=== PATIENT | female | born 1965 ===

== ENCOUNTER 2018-02-26 22:52 | Emergency (ER) | payer BC, OTHER ==
[2018-02-26] MEDS ORDERED: Sodium Chloride 0.9% 1,000 ML IV ONE (23:26)
--- NOTE | 2018-02-26 23:26 | C.PDOC ---
History Of Present Illness Patient presents to the ER with a complaint of left greater than right flank pain and back pain that began at approximately 16:00 today. Patient was seen by her certified pharmacist assistant who started her on antibiotics, however, patient is still with sharp flank pain. Patient reports some nausea but denies fever, chills, or vomiting. Time Seen by Provider: 02/26/18 23:26 Chief Complaint (Nursing): Abdominal Pain History Per: Patient History/Exam Limitations: no limitations Onset/Duration Of Symptoms: Hrs Current Symptoms Are (Timing): Still Present Severity: Moderate Pain Scale Rating Of: 6 Radiation Of Pain To:: None Quality Of Discomfort: Sharp Associated Symptoms: Nausea, Back Pain, Other (Flank pain). denies: Fever, Chills, Vomiting Exacerbating Factors: None Alleviating Factors: None Recent travel outside of the [place]: No Abnormal Vaginal Bleeding: No Past Medical History Reviewed: Historical Data, Nursing Documentation, Vital Signs Vital Signs: Last Vital Signs Temp 98.8 F 02/27/18 00:20 Pulse 82 02/27/18 00:20 Resp 18 02/27/18 00:20 BP 140/75 02/27/18 00:20 Pulse Ox 100 02/27/18 00:21 - Medical History PMH: Asthma Family History: States: No Known Family Hx - Social History Hx Alcohol Use: No Hx Substance Use: No Review Of Systems Constitutional: Negative for: Fever, Chills Respiratory: Negative for: Cough Gastrointestinal: Positive for: Nausea. Negative for: Vomiting Genitourinary: Negative for: Dysuria, Hematuria Musculoskeletal: Positive for: Back Pain, Other (Flank pain) Physical Exam - Physical Exam Appears: Non-toxic Skin: Warm, Dry Head: Normacephalic Oral Mucosa: Moist Chest: Symmetrical, No Tenderness Cardiovascular: Rhythm Regular Respiratory: No Rales, No Rhonchi, No Wheezing Gastrointestinal/Abdominal: Soft, Tenderness (Suprapubic), No Guarding, No Rebound Back: Other (Left flank tenderness) Neurological/Psych: Oriented x3 ED Course And Treatment - Laboratory Results Result Diagrams: 02/26/18 23:55 02/26/18 23:55 O2 Sat by Pulse Oximetry: 100 (Room air) Pulse Ox Interpretation: Normal Progress Note: CT abd/pel, blood work, and urinalysis ordered. Morphine, zosyn, toradol, zofran, and IV fluids administered. Reevaluation Time: 01:42 Reassessment Condition: Improved Disposition Counseled Patient/Family Regarding: Studies Performed, Diagnosis, Need For Followup, Rx Given - Disposition Referrals: James Mendoza MD [Staff Provider] - Disposition: HOME/ ROUTINE Disposition Time: 23:26 Condition: FAIR Additional Instructions: Please return if you have fever, chills, nausea or just not feeling any better. Do finish the antibiotic Prescriptions: Ondansetron ODT [Zofran ODT] 1 odt PO BID PRN #6 odt PRN Reason: Nausea/Vomiting traMADol [Ultram] 50 mg PO DAILY PRN #15 tab PRN Reason: Pain, Severe (8-10) Instructions: Acute Cystitis (DC), Urinary Tract Infection, Adult (DC) Forms: [facility] ([place]) - Clinical Impression Clinical Impression: UTI (urinary tract infection) - Scribe Statement The provider has reviewed the documentation as recorded by the Scribe Bora Aburto All medical record entries made by the Scribe were at my direction and personally dictated by me. I have reviewed the chart and agree that the record accurately reflects my personal performance of the history, physical exam, medical decision making, and the department course for this patient. I have also personally directed, reviewed, and agree with the discharge instructions and disposition.
[2018-02-26] MEDS ORDERED: Sodium Chloride 0.9% 1,000 ML ONE (23:32)
[2018-02-26 23:57] LABS: INR 1.1; PROTHROMBIN TIME 11.7 SECONDS (9.7-12.2)
[2018-02-26 23:58] LABS: SQUAMOUS EPITHIAL 24 /hpf (0-5); URINE BILIRUBIN NEGATIVE (NEGATIVE); URINE BLOOD 3+ (NEGATIVE); URINE CLARITY Hazy (Clear); URINE COLOR Yellow (YELLOW); URINE GLUCOSE (UA) NORMAL (Normal); URINE LEUKOCYTE ESTERASE 3+ Leu/uL (Negative); URINE PROTEIN 2+ mg/dL (NEGATIVE); URINE UROBILINOGEN NORMAL mg/dL (0.2-1.0); WBC CLUMPS FEW /hpf
[2018-02-26 23:59] LABS: BASO # 0.1 K/uL (0.0-0.2); BASO % 0.6 % (0.0-2.0); EOS # 0.1 K/uL (0.0-0.7); EOS % 0.5 % (0.0-4.0); HEMOGLOBIN 12.8 g/dL (11.0-16.0); LYMPH # 1.9 K/uL (1.0-4.3); LYMPH % 15.2 % (20.0-40.0); MEAN CELL VOLUME 80.3 fL (81.0-99.0); MEAN CORPUSCULAR HEMOGLOBIN 27.2 pg (27.0-31.0); MEAN CORPUSCULAR HGB CONC 33.9 g/dL (33.0-37.0); MEAN PLATELET VOLUME 9.2 fL (7.2-11.7); MONO # 0.9 K/uL (0.0-0.8); NEUT # 9.5 K/uL (1.8-7.0); NEUT % 76.7 % (50.0-75.0); RBC 4.71 Mil/uL (3.80-5.20); RED CELL DISTRIBUTION WIDTH 13.6 % (11.5-14.5); WHITE BLOOD COUNT 12.3 K/uL (4.8-10.8)
[2018-02-27] MEDS ORDERED: Piperacillin/Tazobact 3.375 gm 100 ML IVPB STA (00:02)
[2018-02-27 00:07] LABS: ALB/GLOB RATIO 1.2 (1.0-2.1); ALBUMIN 4.2 g/dL (3.5-5.0); ALT/SGPT 15 U/L (9-52); AST/SGOT 24 U/L (14-36); BLOOD UREA NITROGEN 8 mg/dL (7-17); CALCIUM 8.8 mg/dl (8.6-10.4); GFR AFRICAN-AMERICAN > 60; GFR NON-AFRICAN AMERICAN > 60
[2018-02-27] MEDS ORDERED: Morphine 4 MG/ML VIAL ONE (00:07)
[2018-02-27] MEDS ORDERED: Piperacillin/Tazobact 3.375 gm 100 ML IVPB ONE (00:14)
--- NOTE | 2018-02-27 01:18 | CT ---
EXAM: CT Abdomen and Pelvis Without Intravenous Contrast CLINICAL HISTORY: 53 years old, female; Pain; Abdominal pain; Additional info: Left flank pain, uti TECHNIQUE: Axial computed tomography images of the abdomen and pelvis without intravenous contrast. All CT scans at this facility use one or more dose reduction techniques, viz.: automated exposure control; ma/kV adjustment per patient size (including targeted exams where dose is matched to indication; i.e. head); or iterative reconstruction technique. Coronal and sagittal reformatted images were created and reviewed. COMPARISON: No relevant prior studies available. FINDINGS: Limitations: Lack of intravenous contrast. Lung bases: Minimal atelectasis. ABDOMEN: Liver: Unremarkable. Gallbladder and bile ducts: No calcified stones. No ductal dilation. Pancreas: Unremarkable. No ductal dilation. Spleen: No splenomegaly. Adrenals: No mass. Kidneys and ureters: No renal calculi. Duplicated left renal collecting system. Mild pelvocaliectasis of kidneys. Mildly dilated ureters. Mild stranding about LEFT ureter. Stomach and bowel: No definite mural thickening. No obstruction. PELVIS: Appendix: Normal caliber. No inflammation. Bladder: Mildly distended bladder. No stones. Reproductive: 2.0 x 1.6 x 1.8 cm hypodense lesion within LEFT ovary. ABDOMEN and PELVIS: Intraperitoneal space: No significant fluid collection. No free air. Bones/joints: Chronic L5 pars defects with anterolisthesis. Early degenerative changes of spine. No acute fracture. Soft tissues: Tiny umbilical hernia containing fat. Vasculature: Unremarkable. No aneurysm. Lymph nodes: No pathologically enlarged lymph nodes. IMPRESSION: 1. Minimal stranding about left ureter concerning for infection. Correlate with urinalysis to exclude infection. 2. Probable LEFT ovarian cyst. Consider ultrasound. 3. Incidental/non-acute findings are described above.
[2018-02-27 01:56] VITALS: BP 140/78; PULSE 87; RESP 20; TEMP 98; O2SAT 98
== END 2018-02-27 01:56 | disposition home or self-care (01) ==
LOC: C.ER 22:52
DX: N39.0 Urinary tract infection, site not specified (principal)
CPT/HCPCS: 74176; 80053; 81001; 84703; 85025; 85610; 85730; 96361; 96365; 96375; 99285; J1885; J2270; J2405; J2543; J7040